=== PATIENT | female | born 1990 | race Two or more races ===

== ENCOUNTER 2019-10-16 22:41 | Day surgery (SDC) | payer OTHER ==
[~2019-10-16] VITALS: Ht 162.6 cm; Wt 45.4 kg
[2019-10-16] MEDS ORDERED: PRENATAL + DHA1 EAC1 PO (22:46)
--- NOTE | 2019-10-16 22:46 | NUR ---
SE RECIBE PT EN COMPANIA DE PARAMEDICOS, ALERTA Y ORIENTADA EN TIEMPO LUGAR Y PERSONA. PARAMEDICOS REFIEREN PT TRASLADADA DE CHRISTOPHER MCCLELLAN RITA EN [place] POR ABORTO. PT REFIERE TENER [place] LEVE CUANDO VA A ORINAR. AL MOMENTO PTE SIN [place]. SE UBICA EN OBSERVACION PARA EVALUACION MEDICA.
--- NOTE | 2019-10-16 23:38 | NUR ---
[place]. OFRECIDO POR MACKENZIE ZIEGLER QUIEN ORIENTA AL PACIENTE SOBRE EL TX. EXTRAE MUESTRAS DE JORGITO BAJO MEDIDAS ASEPTICAS ROTULA Y ENVIA AL LABORATORIO. CANALIZA BAJO MEDIDAS ASEPTICAS.
--- NOTE | 2019-10-17 07:19 | NUR ---
SE RECIBE PTE FEMENINA DE 29 YRS ALERTA CONCIENTE Y TRANQUILA ,JOHNNY DE DOLOR. SE OBSERVA EN FABIANO CON BARANAS ELEVADA,IVF'S PATENTE Y JOHNNY DE EDEMA. SE LE OBSERVA ACOMPANAIDE DE FAMILIAR. PTE EN ESPERA DE MEDICO DR FITCH QUIEN SE ENCUENTRA NOTIFICADO. SE OBSERVA POR CAMBIOS.
== END 2019-10-16 23:00 | disposition home or self-care (01) ==
LOC: ER 22:41 → CIR.AMB 22:45 → O/R 10-17 08:25 → SEC-K 10-17 08:25 → ER 10-17 08:25 → EDSTATUS 10-17 13:15 → O/R 10-17 14:09 → SEC-K 10-17 14:09
DX: O02.1 Missed abortion (principal)